=== PATIENT | male | born 1965 | race Caucasian/White ===

== ENCOUNTER 2021-12-14 10:23 | Inpatient (IN) | payer MEDICARE, MEDICAID ==
[~2021-12-14] VITALS: Ht 175.3 cm; Wt 99.4 kg
[2021-12-14 15:44] LABS: Basophils # (auto) 0 10 ^3/uL (0-0.2); Basophils % (auto) 0.5 % (0.0-2.0); Eosinophils # (auto) 0.4 10 ^3/uL (0-0.8); Eosinophils % (auto) 5.8 % (0.0-7.0); Hematocrit 36.5 % (41.0-53.0); Hemoglobin 12.5 g/dL (13.5-17.5); Lymphocytes # (auto) 2.3 10 ^3/uL (0.4-5.4); Lymphocytes % (auto) 33.7 % (10.0-50.0); Mean Corpuscular Hemoglobin 31.9 pg (28.0-32.0); Mean Corpuscular Hgb Conc. 34.3 g/dL (32.0-36.0); Monocytes # (auto) 0.6 10 ^3/uL (0-1.3); Monocytes % (auto) 8.7 % (0.0-12.0); Neutrophils # (auto) 3.5 10 ^3/uL (1.6-8.6); Neutrophils % (auto) 51.3 % (37.0-80.0); Red Blood Cells 3.92 10^6/uL (4.5-5.90); Red Cell Distribution Width 15.2 % (11.8-14.3); White Blood Cell 6.8 10^3/uL (4.4-10.8)
[2021-12-14 16:07] LABS: Albumin 3.4 g/dL (3.4-5.0); Calcium 8.7 mg/dL (8.5-10.1); Magnesium 2.5 mg/dL (1.6-2.6); Potassium 3.9 mmol/L (3.5-5.1)
[2021-12-14 16:11] LABS: BUN/Creatinine Ratio 23.1; Bilirubin, Total 0.3 mg/dL (0.2-1.0); Total Protein 6.9 g/dL (6.4-8.2)
[2021-12-14 18:18] LABS: Urine Bacteria NONE SEEN /hpf (None Seen); Urine Blood Negative /uL (Negative); Urine Mucus FEW (None Seen); Urine Specific Gravity 1.037 (1.001-1.035); Urine WBC 1 /hpf (0 - 3)
[2021-12-14 18:46] LABS: Cholesterol 148 mg/dL (< 200)
[2021-12-14 18:49] LABS: HDL Cholesterol 56 mg/dL (40-59); LDL Cholesterol 73 mg/dL (< 100); Triglycerides 154 mg/dL (< 150)
[2021-12-14] MEDS ORDERED: NICOTINE 7MG/24HR TOPICAL PATCH TD ONE (19:30)
[2021-12-14] MEDS ORDERED: LORazepam 2MG/ML-1ML VIAL IV PRN (20:15)
[2021-12-14] MEDS ORDERED: HALOPERIDOL LACTATE 5 MG/ML INJ VIAL IM PRN (20:15)
[2021-12-14] MEDS: SOD CHL 0.45% 1,000 ML IV SCH (21:04)
[2021-12-14 21:07] LABS: Alcohol, Urine < 3.0 mg/dL (0-10); Amphetamine Screen, Urine NEGATIVE (NEGATIVE); Barbiturate Scree,Urine POSITIVE (NEGATIVE); Benzodiazephine Screen, Urine POSITIVE (NEGATIVE); Cannabinoid Screen, Urine NEGATIVE (NEGATIVE); Cocaine Screen, Urine NEGATIVE (NEGATIVE); Phencyclidine Screen, Urine NEGATIVE (NEGATIVE)
[2021-12-14 21:14] LABS: Opiate Scree,Urine NEGATIVE (NEGATIVE)
[2021-12-15 07:11] LABS: Basophils # (auto) 0 10 ^3/uL (0-0.2); Basophils % (auto) 0.5 % (0.0-2.0); Eosinophils # (auto) 0.3 10 ^3/uL (0-0.8); Eosinophils % (auto) 4.9 % (0.0-7.0); Hematocrit 37.9 % (41.0-53.0); Hemoglobin 12.9 g/dL (13.5-17.5); Lymphocytes # (auto) 1.6 10 ^3/uL (0.4-5.4); Lymphocytes % (auto) 26.3 % (10.0-50.0); Mean Corpuscular Hemoglobin 32.2 pg (28.0-32.0); Mean Corpuscular Volume 94.9 fL (80.0-100.0); Monocytes # (auto) 0.6 10 ^3/uL (0-1.3); Monocytes % (auto) 9.5 % (0.0-12.0); Neutrophils # (auto) 3.5 10 ^3/uL (1.6-8.6); Neutrophils % (auto) 58.8 % (37.0-80.0); Nucleated Red Blood Cells % 0.1 %; Red Blood Cells 3.99 10^6/uL (4.5-5.90); Red Cell Distribution Width 15.1 % (11.8-14.3)
[2021-12-15 07:22] LABS: Potassium 3.9 mmol/L (3.5-5.1)
[2021-12-15 07:31] LABS: Albumin 3.4 g/dL (3.4-5.0); Bilirubin, Total 0.2 mg/dL (0.2-1.0); Calcium 8.8 mg/dL (8.5-10.1); Total Protein 6.7 g/dL (6.4-8.2)
[2021-12-15] MEDS: SOD CHL 0.45% 1,000 ML IV SCH ×2 (08:30→15:45)
[2021-12-15 09:00] VITALS: BP 152/80
[2021-12-15] MEDS: NICOTINE 7MG/24HR TOPICAL PATCH TD SCH (10:00)
[2021-12-15 13:00] VITALS: BP 158/70
[2021-12-15 16:31] VITALS: BP 145/65
[2021-12-15 22:00] VITALS: BP 152/87
[2021-12-16] MEDS: SOD CHL 0.45% 1,000 ML IV SCH ×3 (01:45→21:49)
[2021-12-16 05:00] VITALS: BP 135/75
[2021-12-16 09:00] VITALS: BP 170/73
[2021-12-16] MEDS: NICOTINE 7MG/24HR TOPICAL PATCH TD SCH (10:09)
[2021-12-16] MEDS ORDERED: CLON0.5T3 PO (12:06)
[2021-12-16] MEDS ORDERED: DIVA500T13 PO ×2 (12:06)
[2021-12-16] MEDS ORDERED: LURA80TA PO (12:06)
[2021-12-16] MEDS ORDERED: HYDR50TA69 PO (12:06)
[2021-12-16] MEDS ORDERED: TRAZ100T3 PO (12:06)
[2021-12-16] MEDS ORDERED: CLON-853 PO (12:06)
[2021-12-16] MEDS ORDERED: OMEP-263 PO (12:06)
[2021-12-16] MEDS ORDERED: ALBUAER3 IN (12:06)
[2021-12-16] MEDS ORDERED: DOCU100T15 PO (12:06)
[2021-12-16] MEDS ORDERED: [UNRECOGNIZED DRUG - CODE] PO (12:06)
[2021-12-16] MEDS ORDERED: ACET325T10 PO (12:06)
[2021-12-16] MEDS ORDERED: BENZ1TAB2 PO (12:06)
[2021-12-16] MEDS ORDERED: FLUT230A2 IN (12:06)
[2021-12-16] MEDS ORDERED: SERT100T PO (12:06)
[2021-12-16] MEDS ORDERED: METF-370 PO (12:06)
[2021-12-16] MEDS ORDERED: KEP500T PO (12:06)
[2021-12-16] MEDS ORDERED: LISI-716 PO (12:06)
[2021-12-16] MEDS ORDERED: PHEN32.44 PO (12:06)
[2021-12-16] MEDS ORDERED: LEVO75TA6 PO (12:06)
[2021-12-16] MEDS ORDERED: GLUC1TES36 VI (12:06)
[2021-12-16] MEDS ORDERED: ATOR40TA52 PO (12:06)
[2021-12-16] MEDS ORDERED: QUET200T45 PO ×3 (12:06)
[2021-12-16] MEDS ORDERED: RISP3TAB44 PO (12:06)
[2021-12-16 13:00] VITALS: BP 169/89
[2021-12-16] MEDS ORDERED: hydrOXYzine 25 MG TAB or CAP PO PRN ×2 (13:30→15:15)
[2021-12-16] MEDS ORDERED: ACETAMINOPHEN 325 MG TAB PO PRN (13:30)
[2021-12-16] MEDS ORDERED: DOCUSATE SOD 100 MG CAP PO PRN (13:30)
[2021-12-16] MEDS ORDERED: ALBUTEROL SULF 2.5 MG/0.5ML(0.5%) NEB SOLN ONE (14:15)
[2021-12-16] MEDS ORDERED: clonazePAM 0.5 MG TAB PO PRN (15:00)
[2021-12-16] MEDS ORDERED: DEXTROSE (50%) 50ML SYRG IV PRN (15:15)
[2021-12-16 15:37] VITALS: BP 169/89
[2021-12-16 17:00] VITALS: BP 146/75
[2021-12-16] MEDS: InsuLIN REG 1unit/0.01ml Soln (100units/ml) SC SCH ×2 (17:00→22:00)
[2021-12-16] MEDS ORDERED: InsuLIN REG 1unit/0.01ml Soln (100units/ml) SC SCH (17:00)
[2021-12-16] MEDS ORDERED: ACCU-CHEK COMFORT CURVE STRIP VI SCH (17:00)
[2021-12-16] MEDS: LATUDA 80MG TABLET PO SCH (17:03)
[2021-12-16] MEDS: ACCU-CHEK COMFORT CURVE STRIP VI SCH ×2 (17:30→22:10)
[2021-12-16] MEDS: ALBUTEROL SULF 2.5 MG/0.5ML(0.5%) NEB SOLN NEB SCH ×2 (18:52→22:31)
[2021-12-16] MEDS: BUDESONIDE (INHALATION) 0.5 MG/2 ML NEB NEB SCH (18:52)
[2021-12-16 22:00] VITALS: BP 148/70
[2021-12-16] MEDS ORDERED: ATORVASTATIN 20 MG TAB PO SCH (22:00)
[2021-12-16] MEDS ORDERED: traZODone HCL 50 MG TAB PO SCH (22:00)
[2021-12-16] MEDS ORDERED: QUEtiapine FUMARATE 100 MG TAB PO SCH (22:00)
[2021-12-16] MEDS: PHENobarbital 32.4 MG TAB PO SCH (22:06)
[2021-12-16] MEDS: BENZTROPINE MESY 0.5 MG TAB PO SCH (22:07)
[2021-12-16] MEDS: clonazePAM 0.5 MG TAB PO SCH (22:08)
[2021-12-16] MEDS: levETIRAcetam 500 MG TAB PO SCH (22:08)
[2021-12-16] MEDS: risperiDONE 1 MG TAB PO SCH (22:09)
[2021-12-17] MEDS: ALBUTEROL SULF 2.5 MG/0.5ML(0.5%) NEB SOLN NEB SCH ×4 (02:00→14:40)
[2021-12-17 05:00] VITALS: BP 162/69
[2021-12-17] MEDS: ACCU-CHEK COMFORT CURVE STRIP VI SCH ×3 (06:20→17:00)
[2021-12-17] MEDS: InsuLIN REG 1unit/0.01ml Soln (100units/ml) SC SCH ×3 (06:20→17:00)
[2021-12-17] MEDS ORDERED: LEVOTHYROXINE SODIUM 25 MCG TAB PO SCH (07:00)
[2021-12-17] MEDS: SOD CHL 0.45% 1,000 ML IV SCH ×2 (07:45→17:45)
[2021-12-17] MEDS ORDERED: QUEtiapine FUMARATE 100 MG TAB PO SCH ×2 (08:00→12:00)
[2021-12-17 08:57] VITALS: BP 136/67
[2021-12-17] MEDS: risperiDONE 1 MG TAB PO SCH (09:45)
[2021-12-17] MEDS: PHENobarbital 32.4 MG TAB PO SCH (09:47)
[2021-12-17] MEDS: BENZTROPINE MESY 0.5 MG TAB PO SCH (09:48)
[2021-12-17] MEDS: levETIRAcetam 500 MG TAB PO SCH (09:49)
[2021-12-17] MEDS: clonazePAM 0.5 MG TAB PO SCH (09:52)
[2021-12-17] MEDS: NICOTINE 7MG/24HR TOPICAL PATCH TD SCH (09:58)
[2021-12-17] MEDS ORDERED: PANTOPRAZOLE 40 MG TAB PO SCH (10:00)
[2021-12-17] MEDS ORDERED: LISINOPRIL 10 MG TAB PO SCH (10:00)
[2021-12-17] MEDS ORDERED: SERTRALINE HCL 50 MG TAB PO SCH (10:00)
[2021-12-17] MEDS: BUDESONIDE (INHALATION) 0.5 MG/2 ML NEB NEB SCH (10:20)
[2021-12-17 13:15] VITALS: BP 138/76
[2021-12-17 14:20] VITALS: BP 138/76
[2021-12-17 16:40] VITALS: BP 136/67
[2021-12-17] MEDS: LATUDA 80MG TABLET PO SCH (17:48)
== END 2021-12-17 16:30 | disposition home or self-care (01) | DRG 640 ==
LOC: ER 10:23 → EDBD 10:23 → TELE 18:01 → TELE-WESTW 12-15 08:47
PROVIDERS: ADMIT Registered Nurse; ATTEND Internal Medicine
DX: E86.0 Dehydration (principal); G93.41 Metabolic encephalopathy; L03.114 Cellulitis of left upper limb; F79 Unspecified intellectual disabilities; G80.9 Cerebral palsy, unspecified; E11.9 Type 2 diabetes mellitus without complications; E03.9 Hypothyroidism, unspecified; F17.210 Nicotine dependence, cigarettes, uncomplicated; Z20.822 Contact with and (suspected) exposure to COVID-19; F41.9 Anxiety disorder, unspecified; Z71.6 Tobacco abuse counseling
CPT/HCPCS: 36415; 70450; 71045; 80053; 80061; 80307; 81001; 82962; 83036; 83605; 83735; 84443; 84484; 85025; 93005; 93306; 93886; 94640; 96360; G0378

== ENCOUNTER 2022-01-24 09:05 | Emergency (ER) | payer MEDICARE, MEDICAID ==
[~2022-01-24] VITALS: Ht 172.7 cm; Wt 99.8 kg
[~2022-01-24 09:05] MED LIST: ACET325T10 PO; ALBUAER3 IN; ATOR40TA52 PO; BENZ1TAB2 PO; CLON-853 PO; CLON0.5T3 PO; DIVA500T13 PO; DOCU100T15 PO; FLUT230A2 IN; GLUC1TES36 VI; HYDR50TA69 PO; KEP500T PO; LEVO75TA6 PO; LISI-716 PO; LURA80TA PO; METF-370 PO; OMEP-263 PO; PHEN32.44 PO; QUET200T45 PO; RISP3TAB44 PO; SERT100T PO; TRAZ100T3 PO; [UNRECOGNIZED DRUG - CODE] PO
[2022-01-24 10:32] LABS: Albumin 3.4 g/dL (3.4-5.0); Calcium 8.4 mg/dL (8.5-10.1); Magnesium 2.4 mg/dL (1.6-2.6); Potassium 4.6 mmol/L (3.5-5.1)
[2022-01-24 10:36] LABS: Bilirubin, Total 0.3 mg/dL (0.2-1.0); Total Protein 6.3 g/dL (6.4-8.2)
[2022-01-24 18:23] VITALS: BP 179/73
[2022-01-24] MEDS ORDERED: ALBUTEROL SULF 2.5 MG/0.5ML(0.5%) NEB SOLN NEB ONE (19:30)
[2022-01-24] MEDS ORDERED: IPRATROPIUM BROM 0.5 MG/2.5ML INH SOL NEB ONE (19:30)
[2022-01-24 20:28] LABS: Hematocrit 34.9 % (41.0-53.0); Hemoglobin 11.5 g/dL (13.5-17.5); Mean Corpuscular Hemoglobin 30.5 pg (28.0-32.0); Mean Corpuscular Volume 92.4 fL (80.0-100.0); Red Blood Cells 3.77 10^6/uL (4.5-5.90); Red Cell Distribution Width 15.1 % (11.8-14.3); White Blood Cell 7.3 10^3/uL (4.4-10.8)
[2022-01-24 20:30] LABS: Basophils % (manual) 0 (0.0-2.0); Blast Cells 0; Metamyelocytes % 0; Myelocytes % 0; Promyelocytes % 0; Reactive Lymphocytes 0
[2022-01-24 21:02] LABS: Eosinophils % (manual) 12 (0-7); Lymphocytes % (manual) 40 (10.0-50.0); Monocytes % (manual) 12 (0-12)
[2022-01-24 21:03] LABS: Band Neutrophils % (manual) 5
[2022-01-24] MEDS ORDERED: LORazepam 2MG/ML-1ML VIAL IV ONE (21:15)
[2022-01-24] MEDS ORDERED: HALOPERIDOL LACTATE 5 MG/ML INJ VIAL IM ONE (21:15)
[2022-01-24] MEDS ORDERED: LORazepam 2MG/ML-1ML VIAL IM ONE (22:30)
[2022-01-24] MEDS ORDERED: LORazepam 0.5 MG TAB PO PRN (22:45)
[2022-01-24] MEDS ORDERED: HALOPERIDOL 5 MG TAB PO PRN (22:45)
[2022-01-25] MEDS ORDERED: LORazepam 2MG/ML-1ML VIAL IM ONE (02:00)
== END 2022-01-25 09:13 | disposition home or self-care (01) ==
LOC: ER 09:10 → EDBD 09:10 → ER 01-25 09:02
DX: R06.02 Shortness of breath (principal); J44.9 Chronic obstructive pulmonary disease, unspecified
CPT/HCPCS: 36415; 71045; 80053; 83735; 83880; 84484; 85007; 85027; 93005; 96372; 99285; J1630; J2060